=== PATIENT | female | born 1945 | race Caucasian/White ===

== ENCOUNTER → 2017-08-29 | Outpatient (CLI) | payer MEDICARE, OTHER | END | disposition home or self-care (01) | LOC: GMAL 14:47 | PROVIDERS: ATTEND Family Medicine | DX: D51.3 Other dietary vitamin B12 deficiency anemia (principal); E55.9 Vitamin D deficiency, unspecified ==

== ENCOUNTER → 2018-09-11 | Outpatient (CLI) | payer MEDICARE, OTHER | LOC: GMAL 10:59 | PROVIDERS: ATTEND Family Medicine | DX: D51.3 Other dietary vitamin B12 deficiency anemia (principal); R53.83 Other fatigue; E55.9 Vitamin D deficiency, unspecified ==

== ENCOUNTER → 2019-09-13 | Outpatient (CLI) | payer MEDICARE, OTHER | LOC: GMAL 10:18 | PROVIDERS: ATTEND Family Medicine | DX: D51.3 Other dietary vitamin B12 deficiency anemia (principal); R53.83 Other fatigue; E55.9 Vitamin D deficiency, unspecified; I10 Essential (primary) hypertension; E11.9 Type 2 diabetes mellitus without complications; E78.49 Other hyperlipidemia ==

== ENCOUNTER 2020-02-23 21:08 | Emergency (ER) | payer MEDICARE, OTHER ==
[2020-02-23] MEDS ORDERED: ONDANSETRON INJ 4 MG/2 ML VIAL IV ONE (21:21)
[2020-02-23] MEDS ORDERED: MORPHINE SULFATE INJ 10 MG/ML VIAL IV ONE (21:21)
[2020-02-23] MEDS ORDERED: ASPIRIN TABLET 325 MG TAB PO ONE (21:21)
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
[2020-02-23] MEDS ORDERED: NITROGLYCERIN 2% 1 GM UD TOP ONE (21:31)
[2020-02-23 21:32] VITALS: TEMP 98.9
[2020-02-23] MEDS ORDERED: ENOXAPARIN SODIUM 80 MG/0.8 ML SYG SUBCU ONE (21:37)
[2020-02-23] MEDS ORDERED: SODIUM CHLORIDE 0.9% 1000ML 1,000 ML IVS ONE (21:50)
[2020-02-23] MEDS ORDERED: CLOPIDOGREL 75 MG TAB PO ONE ×2 (21:52)
[2020-02-23] MEDS ORDERED: TENECTEPLASE 50 MG VIAL IV ONE (22:04)
[2020-02-23] MEDS ORDERED: CLOPIDOGREL 75 MG TAB ONE (22:05)
[2020-02-23] MEDS ORDERED: SODIUM CHLORIDE 0.9% 1000ML 1,000 ML ONE (22:08)
--- NOTE | 2020-02-23 22:15 | RAD ---
EXAM DESCRIPTION: Chest,1 View CLINICAL HISTORY: 74 years Female, chest pain COMPARISON: Chest x-ray August 10, 2015 FINDINGS: No consolidation. No pneumothorax. No significant pleural effusion. Cardiomediastinal silhouette is unremarkable. Osseous structures are unremarkable. IMPRESSION: No acute findings. Electronically signed by: Edgard Carlos MD 02/23/2020 10:13 PM CDT
[2020-02-23 23:38] VITALS: BP 145/75; O2SAT 98
== END 2020-02-23 22:24 | disposition short-term general hospital (02) ==
LOC: ER 21:08
DX: I21.19 ST elevation (STEMI) myocardial infarction involving other coronary artery of inferior wall (principal); I10 Essential (primary) hypertension; R07.9 Chest pain, unspecified; R11.0 Nausea
CPT/HCPCS: 71045; 80053; 83880; 84484; 85025; 93005; J1650; J2270; J2405; J3101; J7030

== ENCOUNTER 2020-02-29 14:06 | Emergency (ER) | payer MEDICARE, OTHER ==
--- NOTE | 2020-02-29 15:21 | RAD ---
PROCEDURE: XR Chest, 1 View CLINICAL INDICATION: The patient is 74 years old and is Female; left sided mild weakness, now gone MAIN TECHNIQUE: Frontal view of the chest. COMPARISON: Prior study from 6 days earlier. FINDINGS: LUNGS:The lungs are clear and free of focal consolidation. There are low lung volumes noted. PLEURAL SPACE: There is no pneumothorax. There are no pleural effusions noted. HEART: The heart size is normal. MEDIASTINUM: The mediastinal contour is normal. BONES/JOINTS: No acute abnormality noted. TUBES, LINES AND DEVICES: There are electrocardiogram leads present. IMPRESSION: No active disease is seen in the chest. Electronically signed by: Valerio Smith MD 02/29/2020 3:20 PM CDT
--- NOTE | 2020-02-29 17:44 | CT ---
PROCEDURE: Head CLINICAL HISTORY: 74 years Female transient left sided weakness COMPARISON: None. TECHNIQUE: Contiguous axial CT images obtained through the brain without IV contrast. This exam was performed according to our department optimization program which includes automated exposure control, adjustment of the mA and/or kv according to patient size and/or use of iterative reconstruction technique. FINDINGS: The ventricles and sulci appear unremarkable. No mass lesions. No acute hemorrhage. There are areas of decreased density within the white matter in the centrum semiovale and mendes radiata bilaterally likely from microvascular ischemic change/old ischemic change. Atherosclerotic calcifications. There is a focal area of increased density within the right middle cerebral artery which is best visualized on sagittal image 25/79. A small amount of thrombus within the distal M1 segment of the right middle cerebral artery cannot be excluded on this study. No fluid or significant mucosal thickening in the visualized paranasal sinuses. No depressed calvarial fractures. IMPRESSION: There are areas of decreased density in the centrum semiovale and mendes radiata likely from microvascular ischemic change/old ischemic change. There is a focal area of increased density within the right middle cerebral artery likely from artifact but a small amount of thrombus within the distal M1 segment of the right middle cerebral artery cannot be excluded on this study. CTA or MRI/MRA could be obtained to better evaluate if there is continued clinical concern. The findings were called to Dr. Brown at 5:41 PM. Electronically signed by: Shaq Block MD 02/29/2020 5:43 PM CDT
[2020-02-29] MEDS ORDERED: CIPROFLOXACIN 500 MG TAB PO ONE (18:07)
[2020-02-29] MEDS ORDERED: SODIUM CHLORIDE 0.9% 1000ML 1,000 ML IVS ONE ×2 (18:08→18:10)
--- NOTE | 2020-02-29 20:04 | CT ---
PROCEDURE: CTA Head CLINICAL HISTORY: 74 years Female possible right mca abnormality COMPARISON: CT 02/29/2020 TECHNIQUE: Contiguous axial images obtained through the brain during the infusion of IV contrast. Reformatted images obtained. 3-D MIP reformatted images obtained. NASCET criteria utilized for the evaluation of any stenotic lesions. This exam was performed according to our department optimization program which includes automated exposure control, adjustment of the mA and/or kv according to patient size and/or use of iterative reconstruction technique. FINDINGS: Study is limited as it was performed at 2.5 mm separation which is suboptimal for CTA of the brain. Distal internal carotid arteries appear patent and symmetric. No definite large branch occlusion or filling defect in the region of the abnormality on CT examination. Patent anterior containing indicating artery. Venous structures are opacified. Basilar artery is small in caliber. origin of the left [employer]. Patent right anterior communicating artery. Left vertebral artery appears to terminate in the PICA. IMPRESSION: No area of occlusion in the right MCA No large branch occlusion noted Study is suboptimal secondary to technique Electronically signed by: Amber Block MD 02/29/2020 8:03 PM CDT
--- NOTE | 2020-02-29 20:15 | ED.PDOC ---
History of Present Illness - General Chief Complaint: General Stated Complaint: tingling to left side of body Time Seen by Provider: 02/29/20 14:08 Source: patient Exam Limitations: no limitations - History of Present Illness Initial Comments: The patient is a 74-year-old female presented emergency room secondary to a feeling of mild transient weakness to the left upper and left lower extremity. No discoordination. She reports that this was like moving her extremities through water. No motor deficits upon arrival. Symptoms lasted 20 or 30 minutes. The patient does have increased anxiety due to a recent myocardial infarction and a placement of 3 cardiac stents earlier in the week. She is already taking Plavix. No loss of consciousness. No altered mental status. No other focal neurological changes. Timing/Duration: 1/2 hour Severity: mild Improving Factors: nothing Worsening Factors: nothing Associated Symptoms: malaise Allergies/Adverse Reactions: Allergies NO KNOWN ALLERGY Allergy (Verified 02/23/20 21:24) Home Medications: Ambulatory Orders Aspirin [Aspirin Adult Low Dose] 81 mg PO DAILY 02/29/20 Atorvastatin Calcium [Lipitor] 40 mg PO BEDTIME 02/29/20 Ciprofloxacin [Cipro] 500 mg PO BID #10 tab 02/29/20 Clopidogrel Bisulfate [Plavix] 75 mg PO QD 02/29/20 Losartan Potassium & Hydrochlo [Losartan Potassium/Hydroc 100-25 mg] 1 tab PO DAILY 02/29/20 Metoprolol Tartrate [Lopressor] 25 mg PO BID 02/29/20 Review of Systems - Review of Systems Constitutional: States: malaise, weakness EENTM: States: no symptoms reported Respiratory: States: no symptoms reported Cardiology: States: no symptoms reported Gastrointestinal/Abdominal: States: no symptoms reported Genitourinary: States: no symptoms reported Musculoskeletal: States: see HPI Skin: States: no symptoms reported Neurological: States: see HPI, anxiety Endocrine: States: no symptoms reported All other Systems: No Change from Baseline Past Medical History (General) - Patient Medical History Hx Seizures: No Hx Stroke: No Hx Dementia: No Hx Asthma: No Hx of COPD: No Hx Cardiac Disorders: Yes Hx Congestive Heart Failure: No Hx Pacemaker: No Hx Hypertension: Yes Hx Thyroid Disease: No Hx Diabetes: No Hx Gastroesophageal Reflux: No Hx Renal Disease: No Hx Cancer: No Hx of HIV: No Hx Hepatitis C: No Hx MRSA: No Surgical History: Hysterectomy - Vaccination History Hx Tetanus, Diphtheria Vaccination: No Hx Influenza Vaccination: No Hx Pneumococcal Vaccination: Yes - Social History Hx Tobacco Use: No Hx Alcohol Use: No Hx Substance Use: No Hx Physical Abuse: No Hx Emotional Abuse: No Family Medical History - Family History Mother Family History: Unknown Living Status: Unknown Hx Family;Other: Pt states she has no living relatives currently, but that all of them of heart diseas. Physical Exam - Physical Exam General Appearance: Alert, Anxious, No apparent distress Eye Exam: bilateral normal Ears, Nose, Throat: hearing grossly normal, normal ENT inspection Neck: full range of motion, supple Respiratory: lungs clear, normal breath sounds, no respiratory distress, no accessory muscle use Cardiovascular/Chest: normal peripheral pulses, regular rate, rhythm, no edema Peripheral Pulses: radial,right: 2+, radial,left: 2+ Gastrointestinal/Abdominal: non tender, soft Rectal Exam: deferred Back Exam: normal inspection, no CVA tenderness, no vertebral tenderness Extremity: normal range of motion, non-tender, normal inspection, no pedal edema, normal capillary refill Neurologic: manager steel II-XII nml as tested, no motor/sensory deficits, alert, normal mood/affect - Anxious, oriented x 3 Skin Exam: normal color Comments: Vital Signs - 24 hr 02/29/20 02/29/20 02/29/20 14:20 14:42 14:43 Temperature 97.2 F L Pulse Rate [ 73 61 85 Right Brachial] Respiratory 20 Rate Blood Pressure 137/102 123/64 111/71 [Right Arm] O2 Sat by Pulse 96 Oximetry 02/29/20 02/29/20 02/29/20 15:28 17:13 18:00 Temperature Pulse Rate [ 68 72 65 Right Brachial] Respiratory 20 16 18 Rate Blood Pressure 127/77 146/89 120/69 [Right Arm] O2 Sat by Pulse 96 95 97 Oximetry 02/29/20 02/29/20 18:45 19:13 Temperature 98.3 F Pulse Rate [ 66 67 Right Brachial] Respiratory 20 16 Rate Blood Pressure 120/69 128/84 [Right Arm] O2 Sat by Pulse 97 97 Oximetry Progress - Progress Progress: 02/29/20 20:17 The patient is a 74-year-old female presented emergency room secondary to mild left upper and lower extremity transient sensation of subjective weakness earlier in the day. Symptoms resolved by arrival here. Patient does have some anxiety related to her heart attack and stent placement earlier in the week. Laboratory work is reassuring with the exception she does have a mild urinary tract infection. Patient is going to be started on ciprofloxacin for that. Urine will be cultured. CT scan of the head and CT angiogram of the head are reassuring as far as no current large territory stroke. Vital signs have remained stable. The patient was mildly dehydrated and did receive a liter of IV fluids as she was borderline tilt positive upon arrival. The patient does need to follow back up with her primary care doctor the earlier part of this coming week. ER warnings are given for any obvious worsening. The patient does need to continue her Plavix. [email or web address] [id number] - Results/Orders Results/Orders: EKG shows normal sinus rhythm at 66 bpm. Previous inferior [place]. Left axis deviation. Normal QT interval. Poor R wave progression. Chest x-ray is grossly within normal limits. Head CT without contrast shows no acute changes however there is an area of the right MCA that is artifact versus possible thrombus. [place] to be more likely artifact but CTA is recommended if concern. There are chronic changes present. CTA of the head shows no obvious acute pathology of the right MCA or obvious acute vascular pathology otherwise. Laboratory Tests 02/29/20 02/29/20 02/29/20 14:29 14:29 14:29 WBC 10.2 RBC 5.22 Hgb 16.3 H Hct 48.7 H MCV 93.3 MCH 31.2 H MCHC 33.4 RDW 13.5 Plt Count 299 MPV 7.6 Absolute Neuts (auto) 6.70 Absolute Lymphs (auto) 2.70 Absolute Monos (auto) 0.60 Absolute Eos (auto) 0.20 Absolute Basos (auto) 0.00 Neutrophils % 65.9 Lymphocytes % 26.4 Monocytes % 5.7 Eosinophils % 1.7 Basophils % 0.3 PT 10.0 INR 1.01 PTT (SP) 24.7 Sodium 135 Potassium 3.7 Chloride 101 Carbon Dioxide 25 Anion Gap 12.7 BUN 28 H Creatinine 1.13 BUN/Creatinine Ratio 24.8 H Random Glucose 155 H Serum Osmolality 278.7 Calcium 9.5 Magnesium 2.1 Total Bilirubin 1.0 AST 25 ALT 23 Alkaline Phosphatase 100 Creatine Kinase 63 CK-MB (CK-2) 2.7 CK-MB (CK-2) % Not Reportable Troponin I 1.69 H* B-Natriuretic Peptide 73.8 Serum Total Protein 7.9 Albumin 4.0 Globulin 3.9 H Albumin/Globulin Ratio 1.0 L Urine Color Urine Appearance Urine pH Ur Specific [place] Urine Protein Urine Glucose (UA) Urine Ketones Urine Blood Urine Nitrite Urine Bilirubin Urine Urobilinogen Ur Leukocyte Esterase Urine RBC Urine WBC Ur Epithelial Cells Urine Bacteria Urine Mucus 02/29/20 02/29/20 15:44 17:25 WBC RBC Hgb Hct MCV MCH MCHC RDW Plt Count MPV Absolute Neuts (auto) Absolute Lymphs (auto) Absolute Monos (auto) Absolute Eos (auto) Absolute Basos (auto) Neutrophils % Lymphocytes % Monocytes % Eosinophils % Basophils % PT INR PTT (SP) Sodium Potassium Chloride Carbon Dioxide Anion Gap BUN Creatinine BUN/Creatinine Ratio Random Glucose Serum Osmolality Calcium Magnesium Total Bilirubin AST ALT Alkaline Phosphatase Creatine Kinase 63 CK-MB (CK-2) 2.5 CK-MB (CK-2) % Not Reportable Troponin I 1.44 H* B-Natriuretic Peptide Serum Total Protein Albumin Globulin Albumin/Globulin Ratio Urine Color Yellow Urine Appearance Sl cloudy Urine pH 5.5 Ur Specific [place] 1.025 Urine Protein 100 H Urine Glucose (UA) Negative Urine Ketones Trace Urine Blood Negative Urine Nitrite Negative Urine Bilirubin Small H Urine Urobilinogen 1.0 Ur Leukocyte Esterase Large H Urine RBC 0 Urine WBC 5-10 H Ur Epithelial Cells 10-20 Urine Bacteria 1+ Urine Mucus Moderate Departure - Departure Clinical Impression: Anxiety disorder due to medical condition, Dehydration, Stroke-like symptoms Urinary tract infection Qualifiers: Urinary tract infection type: acute cystitis Hematuria presence: without hematuria Qualified Code(s): N30.00 - Acute cystitis without hematuria Disposition: Discharge to Home or Self Care Condition: Fair Departure Forms: ED Discharge - Pt. Copy, Patient Portal Self Enrollment Diet: regular diet Activity: increase activity as tolerated Referrals: David Cuellar III, MD [Primary Care Provider] - 1-2 Weeks Prescriptions: Ciprofloxacin [Cipro] 500 mg PO BID #10 tab Home Medications: Ambulatory Orders Aspirin [Aspirin Adult Low Dose] 81 mg PO DAILY 02/29/20 Atorvastatin Calcium [Lipitor] 40 mg PO BEDTIME 02/29/20 Ciprofloxacin [Cipro] 500 mg PO BID #10 tab 02/29/20 Clopidogrel Bisulfate [Plavix] 75 mg PO QD 02/29/20 Losartan Potassium & Hydrochlo [Losartan Potassium/Hydroc 100-25 mg] 1 tab PO DAILY 02/29/20 Metoprolol Tartrate [Lopressor] 25 mg PO BID 02/29/20 Additional Instructions: The patient is a 74-year-old female presented emergency room secondary to mild left upper and lower extremity transient sensation of subjective weakness earlier in the day. Symptoms resolved by arrival here. Patient does have some anxiety related to her heart attack and stent placement earlier in the week. Laboratory work is reassuring with the exception she does have a mild urinary tract infection. Patient is going to be started on ciprofloxacin for that. Urine will be cultured. CT scan of the head and CT angiogram of the head are reassuring as far as no current large territory stroke. Vital signs have remained stable. The patient was mildly dehydrated and did receive a liter of IV fluids as she was borderline tilt positive upon arrival. The patient does need to follow back up with her primary care doctor the earlier part of this coming week. ER warnings are given for any obvious worsening. The patient does need to continue her Plavix.
[2020-02-29 20:45] VITALS: BP 175/94
[2020-02-29 21:14] VITALS: TEMP 98
[2020-02-29 21:20] VITALS: O2SAT 99
== END 2020-02-29 21:01 | disposition home or self-care (01) ==
LOC: ER 14:06
DX: N30.00 Acute cystitis without hematuria (principal); F41.9 Anxiety disorder, unspecified; E86.0 Dehydration; R53.1 Weakness; R53.81 Other malaise; I10 Essential (primary) hypertension; Z79.82 Long term (current) use of aspirin; Z95.5 Presence of coronary angioplasty implant and graft; Z79.02 Long term (current) use of antithrombotics/antiplatelets; I25.2 Old myocardial infarction
CPT/HCPCS: 36415; 70450; 70496; 71045; 80053; 81001; 82550; 82553; 83735; 83880; 84484; 85025; 85610; 85730; 87086; 93005; J7030

== ENCOUNTER → 2020-04-10 | Outpatient (CLI) | payer MEDICARE, OTHER ==
--- NOTE | 2020-04-10 18:51 | US ---
EXAM DESCRIPTION: Carotid Duplex: ULTRASOUND. CLINICAL HISTORY: 74 years Female atherosclerotic heart disease of [place] coronary artery COMPARISON: None. TECHNIQUE: Transcutaneous scanning utilizing sadler-scale and Doppler modes to evaluate the bilateral carotid systems and vertebral arteries. Percentage of diameter of stenosis or no stenosis recorded will be based upon NASCET criteria. FINDINGS: Peak systolic/end diastolic (CM-Sec) CCA Right 75/14 Left 126/29. ICA Right proximal 83/21, mid 79/17. Left proximal 101/17, mid 71/17. Vertebral Right 62/13 Left 51/10. ECA (PS Only) Right 58 left 95. ICA/CCA peak systolic ratio: Right 1.1 Left 0.8 ICA/CCA end diastolic ratio: Right 1.5 Left 0.6 Vertebral arteries: antegrade flow. Comments: Atherosclerotic calcification in the bilateral common carotid artery bifurcations and proximal ICAs. Spectral broadening in the bilateral proximal ICAs. Right CCA bulb: Area stenosis 64% and diameter stenosis 50%. Proximal right ICA: Area stenosis 40% and diameter stenosis 47%. Left common carotid bulb: Area stenosis 76% and diameter stenosis 65%. Proximal left ICA: Area stenosis 32% and diameter stenosis 39%. IMPRESSION: 1. Doppler evaluation of the bilateral carotid systems and vertebral arteries shows no hemodynamically significant stenoses around 70%, and is consistent with stenoses measurements on grayscale imaging. 2. Marked amount of plaque in the carotid arteries bilaterally, predominantly around the carotid bifurcations. Bilateral vertebral arteries showed antegrade-cephalad flow. Electronically signed by: James Barnes MD 04/10/2020 6:49 PM CDT
== END ==
LOC: US 13:30
PROVIDERS: ATTEND Family Medicine
DX: I25.10 Atherosclerotic heart disease of native coronary artery without angina pectoris (principal); I65.23 Occlusion and stenosis of bilateral carotid arteries; E01.0 Iodine-deficiency related diffuse (endemic) goiter

== ENCOUNTER → 2020-04-13 | Outpatient (CLI) | payer MEDICARE, OTHER ==
--- NOTE | 2020-04-13 15:20 | US ---
US THYROID CLINICAL STATEMENT:74 years Female IODINE-DEFICIENCY RELATED DIFFUSE ENDEMIC GOITER. COMPARISON: None TECHNIQUE: Transcutaneous scanning, grayscale and Doppler modes. FINDINGS: Size right thyroid lobe: 4.6 x 2.0 x 1.7 cm Size left thyroid lobe: 3.6 x 1.8 x 1.5 cm Size isthmus: 0.35 cm Estimated total number of nodules greater than or equal to 1 cm: 4.. Bilateral lobes are heterogeneous. Nodule 1: Size: 2.6 x 1.4 x 1.4 cm Location: Right Mid. Posterior. Composition: solid or almost completely solid: 2 points Echogenicity: hypoechoic: 2 points Shape: wider than tall: 0 points Margins: smooth: 0 points. Minimal vascularity. Echogenic foci: none: 0 points ACR Total Points: 4; ACR TI-RADS risk category: TR4 - moderately suspicious nodule. Nodule 2: Size: 2.0 x 1.4 x 1.4 cm Location: Left Mid. Posterior. Composition: solid or almost completely solid: 2 points Echogenicity: hypoechoic: 2 points Shape: wider than tall: 0 points Margins: smooth: 0 points Echogenic foci: none: 0 points ACR Total Points: 4; ACR TI-RADS risk category: TR4 - moderately suspicious nodule. Nodule 3: Size: 1.7 x 1.0 x 0.7 cm Location: Right Upper. Anterior. Composition: solid or almost completely solid: 2 points Echogenicity: hypoechoic: 2 points Shape: wider than tall: 0 points Margins: smooth: 0 points. Minimal vascular. Echogenic foci: None. ACR Total Points: 4; ACR TI-RADS risk category: TR4 - moderately suspicious nodule. Nodule 4: Size: 1.0 x 0.8 x 0.6 cm Location: Left Mid. Posterior. Composition: solid or almost completely solid: 2 points Echogenicity: hypoechoic: 2 points Shape: wider than tall: 0 points Margins: smooth: 0 points Echogenic foci: none: 0 points ACR Total Points: 4; ACR TI-RADS risk category: TR4 - moderately suspicious nodule. No dominant solid mass, no distinct cyst, no fluid collection, no abnormal calcifications in the surrounding soft tissues. IMPRESSION: 1. Nodule 1: ACR TI-RADS 2017 Category TR4. Recommend: Ultrasound-guided fine needle aspiration. Recommendations based upon [facility] Best Practice recommendations and ACR TI-RADS 2017 guidelines. Please see below*. 2. Nodule 2: ACR TI-RADS 2017 Category TR4. Recommend: Ultrasound-guided fine needle aspiration 3. Nodule 3: ACR TI-RADS 2017 Category TR4. Recommend: Follow-up ultrasound in 1 year. 4. Nodule 4: ACR TI-RADS 2017 Category TR4. Recommend: Follow-up ultrasound in 1 year. Soft tissue around the thyroid gland is unremarkable. *ACR TI-RADS 2017 Recommendations for imaging follow-up of nodules: TR1: No FNA or follow up TR2: No FNA or follow up TR3: FNA if >/= 2.5 cm, follow up if 1.5 - 2.4 cm in 1, 3, and 5 years TR4: FNA if >/= 1.5 cm, follow up if 1.0 - 1.4 cm in 1, 2, 3, and 5 years TR5: FNA if >/= 1.0 cm, follow up if 0.5 - 0.9 cm every year for 5 years ACR TI-RADS recommends that no more than two nodules with the highest ACR TI-RADS total point should be biopsied and no more than four nodules should be followed. These recommendations do not apply to patients with increased risk for thyroid cancer or patients with symptomatic thyroid disease. Electronically signed by: James Barnes MD 04/13/2020 3:18 PM CDT
== END ==
LOC: US 11:43
PROVIDERS: ATTEND Family Medicine
DX: E01.0 Iodine-deficiency related diffuse (endemic) goiter (principal)

== ENCOUNTER → 2020-04-22 | Outpatient (CLI) | payer MEDICARE, OTHER ==
--- NOTE | 2020-04-22 15:03 | CT ---
EXAM DESCRIPTION: CTA Neck CLINICAL HISTORY: OCCLUSION STENOSIS COMPARISON: Carotid ultrasound April 10, 2020 TECHNIQUE: Postcontrast CTA images of the neck are obtained with coronal and sagittal reconstructed images. Three-D MIP reconstructed images of the arterial vasculature are performed. This exam was performed according to our departmental dose-optimization program, which includes automated exposure control, adjustment of the mA and/or kV according to patient size and/or use of iterative reconstruction technique . FINDINGS: Scattered calcified plaque of the thoracic aortic arch. No flow limiting stenosis of the great vessels at their origin. No subclavian artery stenosis. Mild tortuosity of the right common carotid artery. Moderate eccentric mostly calcified irregular plaque of the carotid bulb extending into the proximal internal carotid artery results in at least 65% focal stenosis of the right ICA at the origin by NASCET criteria. Tortuosity of the mid right ICA seen. Scattered calcified plaque of the intracranial internal carotid artery without high-grade or flow limiting stenosis is. Tortuosity of the left common carotid artery is seen with mild scattered calcified and noncalcified plaque of the mid to distal common carotid artery. Moderate irregular concentric mostly calcified plaque of the left carotid bulb to internal carotid artery seen resulting in 40-50% stenosis of the proximal left ICA by NASCET criteria. Mild tortuosity of the mid cervical ICA. Calcified plaque of the cavernous left ICA resulting in mild stenosis. Prominent bilateral posterior communicating arteries are seen with likely origin of the bilateral posterior cerebral arteries. There may be a small right P1 segment. Basilar artery is small in size. The right vertebral artery is dominant. Mild calcified plaque of the right vertebral artery at the skull base without flow-limiting stenosis. Cervical portion of the vertebral artery is patent. Calcified plaque at the origin of the right vertebral artery results in at least mild stenosis. 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 Left vertebral artery is small in size and shows only small vessel communicating with the basilar artery. The neck soft tissues are unremarkable. Visualized lung apices show calcified pulmonary nodule in the left upper lobe suggesting old granulomatous disease. Borderline submandibular and cervical chain lymph nodes are seen measuring maximum 8 mm short axis on the left. IMPRESSION: Moderate atherosclerotic disease of the carotid arteries bilaterally most pronounced in the carotid bulb left greater than right. At least 65% focal stenosis at the origin of the right ICA and 40-50% stenosis of the proximal left ICA seen by NASCET criteria criteria. Small basilar artery is seen with prominent bilateral posterior communicating arteries as described above. Dominant right vertebral artery with mild atherosclerotic disease is seen. Other findings as described above. Electronically signed by: Luiz Morris MD 04/22/2020 3:01 PM CDT
== END ==
LOC: CT 09:30
PROVIDERS: ATTEND Family Medicine
DX: I65.23 Occlusion and stenosis of bilateral carotid arteries (principal); I67.2 Cerebral atherosclerosis; I70.8 Atherosclerosis of other arteries

== ENCOUNTER → 2020-07-13 | Outpatient (CLI) | payer MEDICARE, OTHER | LOC: GMAJ 10:53 | PROVIDERS: ATTEND Family Medicine | DX: R53.83 Other fatigue (principal); E11.9 Type 2 diabetes mellitus without complications; E78.49 Other hyperlipidemia; Z79.899 Other long term (current) drug therapy ==